=== PATIENT | male | born 1995 ===

== ENCOUNTER → 2018-08-04 | Outpatient (CLI) | payer OTHER ==
[~2018-08-04] MED LIST: ALUM35SO4 TP
[2018-08-04 16:42] LABS: PLATELET COUNT, AUTOMATED 207 K/uL (150-450)
== END ==
LOC: LAB 15:38
PROVIDERS: ATTEND Nurse Practitioner
DX: R61 Generalized hyperhidrosis (principal)
CPT/HCPCS: 36415; 82040; 82247; 82310; 82374; 82435; 82565; 82947; 84075; 84132; 84155; 84295; 84443; 84450; 84460; 84520; 85025